=== PATIENT | male | born 1985 | race Caucasian/White ===

== ENCOUNTER 2016-10-03 07:57 | Emergency (ER) | payer OTHER ==
[2016-10-03 08:41] LABS: HEMOGLOBIN 13.8 gm/dl (14.0-17.5); RED BLOOD COUNT 4.51 M/UL (4.20-5.50); WHITE BLOOD COUNT 9.2 K/UL (4.5-11.0)
[2016-10-03 09:06] LABS: BUN/CREATININE RATIO 20 (0-10)
== END 2016-10-03 15:00 | disposition home or self-care (01) ==
LOC: ER1 07:57
PROVIDERS: Emergency Medicine
DX: R07.2 Precordial pain (principal); R11.0 Nausea; R06.02 Shortness of breath; I10 Essential (primary) hypertension; Z79.899 Other long term (current) drug therapy
CPT/HCPCS: 36415; 71010; 80053; 82550; 82553; 83690; 83874; 84484; 85025; 85379; 93005; 96360; 99285; J7050; Q9963

== ENCOUNTER 2021-06-16 03:32 | Emergency (ER) | payer BC ==
[2021-06-16 04:10] LABS: RED BLOOD COUNT 4.22 M/UL (4.20-5.50); WHITE BLOOD COUNT 11.4 K/UL (4.5-11.0)
[2021-06-16 04:33] LABS: BUN/CREATININE RATIO 17 (0-10)
[2021-06-16] MEDS ORDERED: AMOX TR-K CLV1 EAC4 PO (10:01)
== END 2021-06-16 10:45 | disposition home or self-care (01) ==
LOC: ER1 03:32
PROVIDERS: Family Medicine
DX: K76.0 Fatty (change of) liver, not elsewhere classified (principal); R10.11 Right upper quadrant pain; F17.200 Nicotine dependence, unspecified, uncomplicated
CPT/HCPCS: 76705; 80053; 81001; 83690; 85025; 96374; 96375; 99284; J1885; J2405; Q9967